=== PATIENT | male | born 1955 | race Two or more races ===

== ENCOUNTER → 2018-07-06 | Outpatient (CLI) | END | disposition home or self-care (01) ==

== ENCOUNTER → 2018-07-30 | Outpatient (CLI) | END | disposition home or self-care (01) ==

== ENCOUNTER 2018-11-04 13:31 | Emergency (ER) | payer BC ==
[~2018-11-04] VITALS: Ht 162.6 cm; Wt 78.0 kg
[2018-11-04 13:45] VITALS: BP 146/78; PULSE 78; RESP 19; Ht 162.6 cm; Wt 78.0 kg
[2018-11-04] MEDS ORDERED: ACET325T33 PO (14:43)
[2018-11-04] MEDS ORDERED: CETI10CA PO (14:43)
[2018-11-04] MEDS ORDERED: BENZ-6 PO (14:43)
[2018-11-04] MEDS ORDERED: ACETAMINOPHEN 325 MG TAB PO ONE (15:00)
--- NOTE | 2018-11-04 16:46 | ERD ---
ER Documentation Chief Complaint Chief Complaint FLU SYMPTOMS HPI 63-year-old male presents the emergency department complains of cough, congestion, body aches for the past few days. He denies chest pain, shortness of breath. Rates this moderate in severity. Denies any medications today ROS All systems reviewed and are negative except as per history of present illness. Medications Home Meds Active Scripts Benzonatate* (Tessalon Perle*) 100 Mg Capsule, 100 MG PO TID, #30 CAP Prov:DAWIT LECHUGA PA-C 11/04/18 Acetaminophen* (Tylenol*) 325 Mg Tablet, 2 TAB PO Q6 PRN for PAIN AND OR ELEVATED TEMP, #30 TAB Prov:DAWIT LECHUGA PA-C 11/04/18 Cetirizine Hcl* (Zyrtec*) 10 Mg Capsule, 10 MG PO DAILY, #20 TAB.CHEW Prov:DAWIT LECHUGA PA-C 11/04/18 Allergies Allergies: Coded Allergies: No Known Allergy (Unverified , 11/04/18) PMhx/Soc History of Surgery: Yes (ANGIOGRAM 01/10) Anesthesia Reaction: No Hx Respiratory Disorders: No Hx Cardiac Disorders: Yes (CAD) Hx Psychiatric Problems: Yes (DEPRESSION) Hx Miscellaneous Medical Probl: Yes (PRE-DM, ) Hx Alcohol Use: No Hx Substance Use: No Hx Tobacco Use: No Smoking Status: Never smoker Physical Exam Vitals Vital Signs Date Temp Pulse Resp B/P (MAP) Pulse Ox O2 O2 Flow FiO2 Time Delivery Rate 11/04/18 97.7 78 19 146/78 97 13:45 (100) Physical Exam Const: No acute distress Head: Atraumatic Eyes: Normal Conjunctiva ENT: Normal External Ears, Nose and Mouth. Neck: Full range of motion. No meningismus. Resp: Clear to auscultation bilaterally Cardio: Regular rate and rhythm, no murmurs Abd: Soft, non tender, non distended. Normal bowel sounds Skin: No petechiae or rashes Back: No midline or flank tenderness Ext: No cyanosis, or edema Neur: Awake and alert Psych: Normal Mood and Affect Results 24 hrs Current Medications Medications Dose Sig/Ector Start Time Status Last (Trade) Ordered Route PRN Stop Time Admin Dose Reason Admin 650 mg ONCE ONCE 11/04/18 DC 11/04/18 Acetaminophen PO 15:00 14:44 (Tylenol 11/04/18 15:01 Tab) Procedures/MDM 63-year-old male presents to the ER with upper respiratory infection, which is most likely viral. My clinical suspicion is low suspicion for pneumonia, strep pharyngitis, or pulmonary emergencies due to physical examination. Patient's lungs were clear on examination. hemodynamically stable for discharge. Prescription for Tessalon Perles, Tylenol Zyrtec was given to patient, discussed to return to the ED if not improving as expected or follow-up with a primary care physician. Patient understood and agreed with this plan. Departure Diagnosis: Primary Impression: Upper respiratory infection Condition: Stable Patient Instructions: Preventing Common Respiratory Infections, Uri, Viral, No Abx (Adult) Referrals: DOCTOR,NOT ON STAFF (PCP) Additional Instructions: Visite a santos paul hernández para un EXAMEN.Regrese a estas instalaciones si no se mejora bernadine esperbamos o bernadine le dijimos. [place] toda la medicina miley y bernadine se le indic. Regrese a estas instalaciones si no se mejora bernadine esperbamos o bernadine le dijimos. DAWIT LECHUGA PA-C Nov 04, 2018 16:46
== END 2018-11-04 15:33 | disposition home or self-care (01) ==
LOC: EDUNIT# 13:31 → E/R 13:31 → FTE 15:33
DX: J06.9 Acute upper respiratory infection, unspecified (principal); I25.10 Atherosclerotic heart disease of native coronary artery without angina pectoris
CPT/HCPCS: Z7502; Z7610; 99282